=== PATIENT | female | born 1960 | race Caucasian/White ===

== ENCOUNTER 2022-05-21 12:56 | Outpatient (CLI) | payer OTHER, SELFPAY ==
--- NOTE | 2022-05-21 13:00 | CT_ITS ---
Final Report Patient: DONNA EAST Facility:?[facility] Patient ID:?[id number] Site Patient ID:?[id number]. Site :?[id number] Study:?CT ST Neck W/98CC [id number]/29/2022 2:51:54 PM Ordering Physician:Emerson Fairchild Final Report: DATE: 05/21/2022. CLINICAL HISTORY: Patient with difficulty swallowing. TECHNIQUE: Standard helical CT image acquisition of the neck up to the skull base after bolus intravenous contrast enhancement. Multiplanar reconstructed images performed on a separate workstation. Contrast: 98mL of Isovue-370 administered intravenously. COMPARISON: None available. FINDINGS: The nasopharynx, oropharynx, oral cavity, hypopharynx, and larynx are within normal limits. The airway is patent throughout. No CT evidence of pathologic cervical lymph nodes by size criteria. The major salivary glands are within normal limits. The spaces of the suprahyoid and infrahyoid neck are within normal limits. The thyroid gland is within normal limits. The visualized lung apices are unremarkable. IMPRESSION: No evidence of significant pathology involving the soft tissues of the neck. No findings to explain the source of the reported history of difficulty swallowing. Please note that all CT scans at this facility use dose modulation, iterative reconstruction, and/or weight-based dosing when appropriate to reduce radiation dose to as low as reasonably achievable. Dictated by Devante Johnson MD @ 05/21/2022 8:51:08 PM (Electronic Signature)
[2022-05-21 13:41] LABS: Creatinine* 0.6 mg/dL (0.5-1.5); Estimated Glomerular Filt Rate 101.42
== END 2022-05-21 12:57 | disposition home or self-care (01) ==
LOC: CT 12:59
PROVIDERS: PCP Family Medicine; Visit Provider Family Medicine
DX: R13.10 Dysphagia, unspecified (principal)
CPT/HCPCS: 36415; 70491; 82565; Q9967

== ENCOUNTER 2022-06-20 08:00 | Outpatient (CLI) | payer OTHER, SELFPAY ==
--- NOTE | 2022-06-20 08:15 | CRLHL7_ITS ---
For Patients: As a result of the Cures Act, medical imaging exams and procedure reports are released immediately into your electronic medical record. You may view this report before your referring provider. If you have questions, please contact your health care provider. Indication: Abnormal sensation in the left throat Technique: Esophagram Comparison: No comparison Findings: The patient was given thin and thick barium effervescent granules which were followed fluoroscopically. The hypopharynx is clear there is no mass lesion filling defects. No hiatal hernia seen. Impression: Unremarkable esophagram. Total fluoro time 0.5 seconds 10 images obtained. Dictated by Noemi Euceda MD @ 06/20/2022 9:17:31 AM (Electronically Signed)
== END 2022-06-20 08:01 | disposition home or self-care (01) ==
LOC: RAD 08:02
PROVIDERS: PCP Family Medicine; Visit Provider Otolaryngology
DX: R13.10 Dysphagia, unspecified (principal)
CPT/HCPCS: 74221

== ENCOUNTER 2023-02-09 13:38 | Outpatient (CLI) | payer OTHER, SELFPAY | END 2023-02-09 13:39 | disposition home or self-care (01) | LOC: NFLDREF 02-10 20:05 | PROVIDERS: PCP Family Medicine; Referring Provider Family Medicine; Visit Provider Family Medicine | DX: E55.9 Vitamin D deficiency, unspecified (principal); E78.5 Hyperlipidemia, unspecified; I10 Essential (primary) hypertension; E66.01 Morbid (severe) obesity due to excess calories | CPT/HCPCS: 80053; 80061; 82306 ==

== ENCOUNTER 2023-02-13 14:00 | Outpatient (CLI) | payer OTHER, SELFPAY | END 2023-02-13 14:01 | disposition home or self-care (01) | PROVIDERS: PCP Family Medicine; Referring Provider Family Medicine; Visit Provider Family Medicine | DX: R30.0 Dysuria (principal); E55.9 Vitamin D deficiency, unspecified; I10 Essential (primary) hypertension; K21.9 Gastro-esophageal reflux disease without esophagitis; Z23 Encounter for immunization; E78.5 Hyperlipidemia, unspecified; E66.01 Morbid (severe) obesity due to excess calories; K59.09 Other constipation; H40.9 Unspecified glaucoma; M25.551 Pain in right hip; M25.552 Pain in left hip; M54.50 Low back pain, unspecified | CPT/HCPCS: 87086 ==

== ENCOUNTER 2023-05-12 14:24 | Outpatient (CLI) | payer OTHER, SELFPAY ==
--- NOTE | 2023-05-12 14:40 | CRLHL7_ITS ---
For Patients: As a result of the Century Cures Act, medical imaging exams and procedure reports are released immediately into your electronic medical record. You may view this report before your referring provider. If you have questions, please contact your health care provider. BILATERAL SCREENING MAMMOGRAM WITH COMPUTER-AIDED DETECTION TECHNIQUE: CC and MLO views were obtained. These mammographic images have been obtained using full-field digital technique. These mammographic images were interpreted with the benefit of computer-aided detection. COMPARISON FILM: 10/26/19, 08/27/16, 01/26/15. FINDINGS: There are scattered areas of fibroglandular density IMPRESSION: There is no radiographic evidence for malignancy. ASSESSMENT: BI-RADS Category 1: Negative RECOMMENDATION: Routine screening mammogram in 1 year. A lay language report of this examination will be provided to the patient. Jesus So M.D. Diagnostic/Nuclear Medicine Radiologist [email or web address] LENY/Dictated by: Jesus So MD @ 05/13/2023 9:05:00 AM (Electronically Signed)
== END 2023-05-12 14:25 | disposition home or self-care (01) ==
LOC: MAMMO 14:25
PROVIDERS: PCP Family Medicine; Visit Provider Family Medicine
DX: Z12.31 Encounter for screening mammogram for malignant neoplasm of breast (principal)
CPT/HCPCS: 77067

== ENCOUNTER 2024-05-30 07:30 | Outpatient (CLI) | payer OTHER, SELFPAY ==
--- OUTSIDE RECORDS SUMMARY | 2024-05-30 13:12 | XMS_ITS | Clinical Summary ---
Author Organization [employer] [facility] Address [place], [place] [address] Care Team Providers Care Head Sampler Name Role Phone Clinic, [facility] Primary Care Prov ider Allergies No known active allergies Medications Medication Sig Dispensed Refills Start Date End Date Status hydrOXYzine HCl (ATARAX) 25 mg tablet Take 1 tablet by mouth at bedtime if needed. 0 09/14/2014 Active Active Problems Problem Noted Date Diagnosed Date Insomnia Immunizations Name Administration Dates Next Due Td (Age >=7 Years) 12/24/2004 Social History Tobacco Use Types Packs/Day Years Used Date Smoking Tobacco: Never Smokeless Tobacco: Never Alcohol Use Standard Drinks/Week Comments No 0 (1 standard drink = 0.6 oz pur e alcohol) Sex and Gender Information Value Date Recorded Sex Assigned at Not on file Gender Identity Not on file Sexual Orientation Not on file Obstetrics History Last Filed Vital Signs Vital Sign Reading Time Taken Comments Blood Pressure 118/82 01/01/2015 10:07 AM LINE UP WORKER Pulse 80 01/01/2015 10:05 AM LINE UP WORKER Temperature - - Respiratory Rate 14 09/14/2014 3:53 PM CDT Oxygen Saturation - - Inhaled Oxygen Concentration - - Weight 88.5 kg (195 lb) 01/01/2015 10:05 AM LINE UP WORKER Height 151.8 cm (4' 11.75) 01/01/2015 10:05 AM LINE UP WORKER Body Mass Index 38.4 01/01/2015 10:05 AM LINE UP WORKER Plan of Treatment Health Maintenance Due Date Last Done Comments Tdap 02/12/1971 Depression screening for age 12+ 1972 HIV for age 15-65 02/12/1975 BMI (ht and wt on same day) for age 18+ 02/12/1978 Hepatitis C screening for age 18-79 02/12/1978 Colonoscopy through age 75 02/12/2005 Lipids for age 45-75 02/12/2005 Mammogram for age 45-75 02/12/2005 Zoster (shingles) series for age 50+ (1 of 2) 02/12/2010 Tetanus booster 12/24/2014 12/24/2004 COVID-19 vaccine series (2022-24 season) 2023 Pap test for age 21-65 10/26/2023 , 10/26/2020, 01/26/2015, Additional history exists Influenza for age 50-64 07/24/2024 Pneumococcal series for age 6-64 Aged Out No longer eligible based on patient's age to complete this topic Procedures Procedure Name Priority Date/Time Associated Diagnosis Comments STOCK OR DELIVERY CLERK THIN PREP PAP SCREEN IMAGED Routine 10/26/2020 1:20 PM LINE UP WORKER from Last 3 Months or Most Recently Relevant to Health Maintenance Results * STOCK OR DELIVERY CLERK THIN PREP PAP SCREEN IMAGED (10/26/2020 1:20 PM LINE UP WORKER) Case Report Gynecologic Cytology Report ? Case: [id number] ? Authorizing Provider: ??Flora Lujan MD ??Collected: ? 10/26/2020 1320 ? Ordering Location: ? [facility] ?Received: ?10/30/2020 0848 ? First Screen: ?Cassy Cotton ? Specimen: ?STOCK OR DELIVERY CLERK ThinPrep Vial Screening, Cervical/Vaginal ? 11/12/2020 11:49 AM [facility] [employer] [facility] INTERPRETATION/ RESULT NEGATIVE FOR INTRAEPITHELIAL LESION OR MALIGNANCY (NIL) (none) 11/12/2020 11:49 AM [facility] [employer] [facility] IMEN ADEQUACY Satisfactory for evaluation No endocervical component seen 11/12/2020 11:49 AM [facility] HPV REQUEST HPV and PAP 11/12/2020 11:49 AM [facility] Date of LMP 11/12/2020 11:49 AM [facility] Comment:Unknown Last Pap Date 11/12/2020 11:49 AM [facility] Comment:Unknown Additional Information 11/12/2020 11:49 AM [facility] Comment: Interpreted at [facility], Central Laboratory - [address], [place] [address] Automated Review Successful 11/12/2020 11:49 AM [facility] Comment:Specimen processed s uccessfully by automated die forger device, ThinPrep Imaging System, [employer] ANCILLARY TESTING STOCK OR DELIVERY CLERK HPV Ordered, Please see separate report 11/12/2020 11:49 AM [facility] Note The pap test is a screening technique, not a diagnostic procedure. It is used primarily to screen for squamous cancers and precursor lesions. Published studies have shown that it is subject to both false negative and false positive results. The pap test should not be used as the sole means to diagnose or exclude pre-malignant and malignant lesions. 11/12/2020 11:49 AM [facility] [employer] [facility] Other (Cervical/Vagina l) 10/26/2020 1:20 PM LINE UP WORKER 10/30/2020 8:48 AM LINE UP WORKER Flora Lujan MD PATHOLOGY/CYTOLO GY [facility] [address] [place] [address], [place] from Last 3 Months or Most Recently Relevant to Health Maintenance Care Teams Head Sampler Relationship Specialty Start Date End Date Clinic, [facility] [address] [place] [address] PCP - General 03/13/07
== END 2024-05-30 07:31 | disposition home or self-care (01) ==
LOC: NFLDREF 12:57
PROVIDERS: PCP Family Medicine; Referring Provider Family Medicine; Visit Provider Family Medicine
DX: M81.0 Age-related osteoporosis without current pathological fracture (principal); E55.9 Vitamin D deficiency, unspecified; I10 Essential (primary) hypertension; E78.5 Hyperlipidemia, unspecified
CPT/HCPCS: 80053; 80061; 82306

== ENCOUNTER 2024-06-22 09:52 | Emergency (ER) | payer OTHER, SELFPAY ==
[2024-06-22 10:19] VITALS: BP 171/95; PULSE 81; RESP 18; TEMP 36.2; O2SAT 99; BMI 38.4
--- NOTE | 2024-06-22 10:42 | CRLHL7_ITS ---
For Patients: As a result of the Cures Act, medical imaging exams and procedure reports are released immediately into your electronic medical record. You may view this report before your referring provider. If you have questions, please contact your health care provider. Indication: LOW BACK PAIN Technique: Two views of the lumbar spine. Comparison: None. Findings: No acute displaced fracture or malalignment. Mild disc space narrowing at L1-2. Moderate facet arthropathy at L5-S1 with possible mild neural foraminal narrowing. Impression: No acute displaced fracture or malalignment. Mild degenerative changes as described above most prominently at L1-2 and L5-S1. Dictated by Ruddy Salas MD @ 06/22/2024 11:33:21 AM (Electronically Signed)
[2024-06-22] MEDS: CYCLOBENZAPRINE HCL 10 MG TABLET PO (10:50)
--- OUTSIDE RECORDS SUMMARY | 2024-06-22 10:53 | XMS_ITS | Clinical Summary ---
Author Organization [facility] Address [place], [place] [address] Care Team Providers Care Order Entry Clerk Name Role Phone Clinic, [facility] Primary Care Prov ider Allergies No [...] Comments Blood Pressure 118/82 01/01/2015 10:07 AM TRAVEL SERVICES PROFESSIONAL Pulse 80 01/01/2015 10:05 AM TRAVEL SERVICES PROFESSIONAL Temperature - - Respiratory Rate 14 09/14/2014 3:53 PM CDT Oxygen Saturation - - Inhaled Oxygen Concentration - - Weight 88.5 kg (195 lb) 01/01/2015 10:05 AM TRAVEL SERVICES PROFESSIONAL Height 151.8 cm (4' 11.75) 01/01/2015 10:05 AM TRAVEL SERVICES PROFESSIONAL Body Mass Index 38.4 01/01/2015 10:05 AM TRAVEL SERVICES PROFESSIONAL Plan of Treatment Health Maintenance Due Date [...] Procedure Name Priority Date/Time Associated Diagnosis Comments RISK MANAGEMENT SPECIALIST THIN PREP PAP SCREEN IMAGED Routine 10/26/2020 1:20 PM TRAVEL SERVICES PROFESSIONAL from Last 3 Months or Most Recently Relevant to Health Maintenance Results * RISK MANAGEMENT SPECIALIST THIN PREP PAP SCREEN IMAGED (10/26/2020 1:20 PM TRAVEL SERVICES PROFESSIONAL) Case Report Gynecologic Cytology Report ? Case: [id number] ? Authorizing Provider: ??Flora Lujan MD ??Collected: ? 10/26/2020 1320 ? Ordering Location: ? [facility] ?Received: ?10/30/2020 0848 ? First Screen: ?Cassy Cotton ? Specimen: ?RISK MANAGEMENT SPECIALIST ThinPrep Vial Screening, Cervical/Vaginal ? 11/12/2020 11:49 AM [facility] [employer] [facility] INTERPRETATION/ RESULT NEGATIVE FOR INTRAEPITHELIAL LESION OR MALIGNANCY (NIL) (none) 11/12/2020 11:49 AM [facility] [employer] [facility] IMEN ADEQUACY Satisfactory for evaluation No endocervical component seen 11/12/2020 11:49 AM [facility] HPV REQUEST HPV and PAP 11/12/2020 11:49 AM [facility] Date of LMP 11/12/2020 11:49 AM [facility] Comment:Unknown Last Pap Date 11/12/2020 11:49 AM [facility] Comment:Unknown Additional Information 11/12/2020 11:49 AM [facility] Comment: Interpreted at [facility] [employer] [facility], Central Laboratory - [address], [place] [address] Automated Review Successful 11/12/2020 11:49 AM [facility] Comment:Specimen processed s uccessfully by automated lamps tester and inspector device, ThinPrep Imaging System, [employer] ANCILLARY TESTING RISK MANAGEMENT SPECIALIST HPV Ordered, Please see separate report 11/12/2020 11:49 AM [facility] Note The pap test is a screening technique, not a diagnostic procedure. It is used primarily to screen for squamous cancers and precursor lesions. Published studies have shown that it is subject to both false negative and false positive results. The pap test should not be used as the sole means to diagnose or exclude pre-malignant and malignant lesions. 11/12/2020 11:49 AM [facility] [employer] [facility] Other (Cervical/Vagina l) 10/26/2020 1:20 PM TRAVEL SERVICES PROFESSIONAL 10/30/2020 8:48 AM TRAVEL SERVICES PROFESSIONAL Flora Lujan MD PATHOLOGY/CYTOLO GY [facility] LAB[facility]ORY [address] [place] [address], [place] from Last 3 Months or Most Recently Relevant to Health Maintenance Care Teams Order Entry Clerk Relationship Specialty Start Date End Date Clinic, [facility] [address] [place] [address] PCP - General 03/13/07
--- NOTE | 2024-06-22 11:47 | ED_ITS ---
HPI - Back Pain/Injury General Date Seen: 06/22/24 Chief Complaint: Back Injury/Pain Stated Complaint: Low back pain Time Seen by Provider: 06/22/24 09:54 Source: patient Mode of arrival: ambulatory Limitations: no limitations History of Present Illness HPI Narrative: Patient is a 64-year-old female presenting to the emergency department for low back pain. She states she has a history of low back issues and has done therapy in the past with minimal improvement in her symptoms. States she was at work when she was picking something up and twisted and she felt pain in her lower back. She states usually when this happened she is able walk it off but was unable to this time. She took some ibuprofen in states she feels like that is starting to kick in. Denies loss of bowel or bladder control. Denies urinary tension. No history of IV drug use. Denies saddle anesthesia. Pain does not radiate. No other concerns noted at this time. Related Data Home Medications ?Medication ?Instructions ?Recorded ?Confirmed cholecalciferol (vitamin D3) 10 10 mcg PO DAILY 06/05/22 06/22/24 mcg (400 unit) capsule polyethylene glycol 3350 17 17 g PO DAILY PRN 02/13/23 06/22/24 gram/dose oral powder latanoprost 0.005 % eye drops 1 drp ophthalmic (eye) DAILY 06/02/24 06/22/24 Previous Rx's ?Medication ?Instructions ?Recorded hydrochlorothiazide 12.5 mg capsule 12.5 mg PO DAILY #90 caps 06/02/24 cyclobenzaprine 10 mg tablet 10 mg PO TID PRN muscle spasm #15 06/22/24 tabs Allergies Allergy/AdvReac Type Severity Reaction Status Date / Time No Known Allergies Allergy Verified 06/22/24 10:26 Review of Systems Narrative: Pertinent systems reviewed and were negative unless stated HPI PFSH PFSH Medical History (Updated 06/22/24 @ 11:52 by Waqas Quinn DO) Swelling of lower extremity ?M79.89 - Other specified soft tissue disorders (ICD-10) Chronic constipation ?K59.09 - Other constipation (ICD-10) Uterine fibroid (06/21/10) ?D25.9 - Leiomyoma of uterus, unspecified (ICD-10) History of chronic constipation ?Z87.19 - Personal history of other diseases of the digestive system (ICD-10) Helicobacter pylori infection (~04/2021) ?A04.8 - Other specified bacterial intestinal infections (ICD-10) Headache associated with sexual activity (07/2019) ?G44.82 - Headache associated with sexual activity (ICD-10) Encounter for long-term (current) use of non-steroidal anti-inflammatories ?Z79.1 - MCC (current) use of non-steroidal anti-inflammatories (NSAID) (ICD-10) Dysphagia ?R13.10 - Dysphagia, unspecified (ICD-10) Situational depression (06/21/10) ?F43.21 - Adjustment disorder with depressed mood (ICD-10) Chronic right shoulder pain ?M25.511 - Pain in right shoulder (ICD-10) ?G89.29 - Other chronic pain (ICD-10) Surgical History (Updated 06/02/24 @ 11:53 by Flora Lujan MD) Hx of esophagogastroduodenoscopy (04/2022) ?Z98.890 - Other specified postprocedural states (ICD-10) History of tubal ligation (1980) ?Z98.51 - Tubal ligation status (ICD-10) Family History Pancreatic cancer Aunt Dementia Aunt Stroke Mother, Onset Age: 87 Social History (Updated 06/03/24 @ 09:08 by Jeronimo Colindres ~ [facility]) Narrative: does not drink alcohol exercises regularly- walks 2M/day x5 days a week , 3 adult kids, works in [employer] (physical work) non-smoker What is your current living situation?: I presently have a place to live Problems where you live: no known problems In the past 12 months, utilities in danger of being shut off: no In past 12 months, lack of transportation kept you from medical appts, meetings, work, or getting things needed for daily living: no In the past 12 mos, have been you worried that your food would run out before you had money to buy more?: never true In the past 12 mos, the food you bought just didn't last and you didn't have money to buy more?: never true Smoking Status: Never smoker Do you use any of these nicotine containing products: None How often do you have a drink containing alcohol: never How often do you have six or more drinks on one occasion: Never AUDIT-C Alcohol total score: 0 Non-prescribed substance use: denies use How often does anyone, including family, friends and others, physically hurt you : never How often does anyone, including family, friends and others, insult or talk down to you: rarely How often does anyone, including family, friends and others, threaten you with harm: never How often does anyone, including family, friends and others, scream or curse at you: never Little interest or pleasure in doing things: not at all Feeling down, depressed, or hopeless: not at all Exam Narrative: Exam Narrative: Const: Well-nourished, Well-developed, in mild distress Eyes: PERRL, no conjunctival injection, and symmetrical lids HENT: Atraumatic external nose and ears. Moist mucous membranes. MSK:Extremities w/o deformity, tenderness noted across the low back at about L4 Skin: Warm, Dry. No rashes or lesions. Neuro: Normal Muscle tone, No focal neurological deficits. Psych: Awake, Alert, & Oriented x3. Appropriate mood and affect. Const: Vital Signs, click to edit/add: Vital Signs - 24 hr 06/22/24 10:19 Temperature 97.1 F L Pulse Rate [Pulse Oximeter] 81 Respiratory Rate 18 Blood Pressure [Ri ght Upper Arm] 171/95 H Pulse Oximetry 99 Oxygen Delivery Me thod Room Air Course Vital Signs Vital signs: Initial Vital Signs Temperature 97.1 F L 06/22/24 10:19 Temperature Source Temporal Artery Scan 06/22/24 10:19 Pulse Rate 81 06/22/24 10:19 Respiratory Rate 18 06/22/24 10:19 Blood Pressure 171/95 H 06/22/24 10:19 Blood Pressure Mean 120 H 06/22/24 10:19 Blood Pressure Position Sitting 06/22/24 10:19 Pulse Oximetry 99 06/22/24 10:19 Oxygen Delivery Method Room Air 06/22/24 10:19 Vital Signs Temperature 97.1 F L 06/22/24 10:19 Pulse Rate 81 06/22/24 10:19 Respiratory Rate 18 06/22/24 10:19 Blood Pressure 171/95 H 06/22/24 10:19 Pulse Oximetry 99 06/22/24 10:19 Oxygen Delivery Method Room Air 06/22/24 10:19 Temperature 97.1 F L 06/22/24 10:19 Pulse Rate 81 06/22/24 10:19 Respiratory Rate 18 06/22/24 10:19 Blood Pressure 171/95 H 06/22/24 10:19 Pulse Oximetry 99 06/22/24 10:19 Oxygen Delivery Method Room Air 06/22/24 10:19 Medications Administered Medications: Discontinued Medications Generic Name Dose Route Start Last Admin Trade Name Freq PRN Reason Stop Dose Admin Cyclobenzaprine HCl 10 mg 06/22/24 10:42 06/22/24 10:50 Cyclobenzaprine Hcl 10 Mg Tablet PO 06/22/24 10:43 10 mg ONCE ONE Administration MDM - Back Pain/Injury MDM Narrative Medical decision making narrative: Patient is 64-year-old female presenting to emergency department for low back pa in. This occurred at work. Will do an x-ray to make sure there are no acute fractures considering this was a work injury. Will give her a muscle relaxer for pain. X-ray returned showing no concerning abnormalities and she states she is feeling better at this time. No signs of red flag symptoms for cauda equina. She is otherwise doing well this is most likely a muscle strain considering the pain goes all the way across the back. Will be discharged. She is agreeable to this plan peer Imaging Data X-ray lumbar spine: Attestation: I have reviewed the pertinent imaging results. Radiologist's impression: No acute displaced fracture or malalignment. Mild degenerative changes as described above most prominently at L1-2 and L5-S1. Dictated by Ruddy Salas MD @ 06/22/2024 11:33:21 AM Discharge Plan Discharge Clinical Impression: Strain of lumbar region Qualifiers: Encounter type: initial encounter Qualified Code(s): S39.012A - Strain of muscle, fascia and tendon of lower back, initial encounter Patient Disposition: Home, Self-Care Condition: Improved Instructions: Low Back Strain (ED) Additional Instructions: Take ibuprofen for pain if that is not helping he can use the muscle relaxer provided. Follow-up with primary care provider if symptoms are persisting. Prescriptions: New cyclobenzaprine 10 mg tablet 10 mg PO TID PRN (Reason: muscle spasm) Qty: 15 0RF No Action cholecalciferol (vitamin D3) 10 mcg (400 unit) capsule 10 mcg PO DAILY polyethylene glycol 3350 17 gram/dose powder 17 g PO DAILY PRN Rx Instructions: Take with a full glass of water. latanoprost 0.005 % drops 1 drp ophthalmic (eye) DAILY hydrochlorothiazide 12.5 mg capsule 12.5 mg PO DAILY Qty: 90 3RF Follow Up/Referrals: Flora Lujan MD [Primary Care Provider] - Stand Alone Forms: [employer] Info Instructions
== END 2024-06-22 11:58 | disposition home or self-care (01) ==
PROVIDERS: Emergency Provider Student in an Organized Health Care Education/Training Program; PCP Family Medicine
DX: S39.012A Strain of muscle, fascia and tendon of lower back, initial encounter (principal)
CPT/HCPCS: 72100; 99282; 99283; A9270

== ENCOUNTER 2024-08-04 14:36 | Outpatient (CLI) | payer OTHER, SELFPAY ==
--- OUTSIDE RECORDS SUMMARY | 2024-08-04 14:39 | XMS_ITS | Clinical Summary ---
Author Organization [employer] [facility] Address [place], [place] [address] Care Team Providers Care Shirt Ironer Supervisor Name Role Phone Clinic, [facility] Primary Care Prov ider Allergies No [...] Comments Blood Pressure 118/82 01/01/2015 10:07 AM FISH BIN TENDER Pulse 80 01/01/2015 10:05 AM FISH BIN TENDER Temperature - - Respiratory Rate 14 09/14/2014 3:53 PM CDT Oxygen Saturation - - Inhaled Oxygen Concentration - - Weight 88.5 kg (195 lb) 01/01/2015 10:05 AM FISH BIN TENDER Height 151.8 cm (4' 11.75) 01/01/2015 10:05 AM FISH BIN TENDER Body Mass Index 38.4 01/01/2015 10:05 AM FISH BIN TENDER Plan of Treatment Health Maintenance Due Date [...] of 2) 02/12/2010 Tetanus booster 12/24/2014 12/24/2004 Pap test for age 21-65 10/26/2023 0, 10/26/2020, 01/26/2015, Additional history exists COVID-19 vaccine series ( season) 2024 Influenza for age 50-64 07/24/2024 Pneumococcal series for age 6-64 Aged Out No longer eligible based on patient's age to complete this topic Procedures Procedure Name Priority Date/Time Associated Diagnosis Comments SQL DATABASE ADMINISTRATOR THIN PREP PAP SCREEN IMAGED Routine 10/26/2020 1:20 PM FISH BIN TENDER from Last 3 Months or Most Recently Relevant to Health Maintenance Results * SQL DATABASE ADMINISTRATOR THIN PREP PAP SCREEN IMAGED (10/26/2020 1:20 PM FISH BIN TENDER) Case Report Gynecologic Cytology Report ? Case: [id number] ? Authorizing Provider: ??Flora Lujan MD ??Collected: ? 10/26/2020 1320 ? Ordering Location: ? [facility] ?Received: ?10/30/2020 0848 ? First Screen: ?Cassy Cotton ? Specimen: ?SQL DATABASE ADMINISTRATOR ThinPrep Vial Screening, Cervical/Vaginal ? 11/12/2020 11:49 AM [facility] [employer] [facility] INTERPRETATION/ RESULT NEGATIVE FOR INTRAEPITHELIAL LESION OR MALIGNANCY (NIL) (none) 11/12/2020 11:49 AM [facility] [employer] [facility] IMEN ADEQUACY Satisfactory for evaluation No endocervical component seen 11/12/2020 11:49 AM [facility] HPV REQUEST HPV and PAP 11/12/2020 11:49 AM [facility] Date of LMP 11/12/2020 11:49 AM [facility] Comment:Unknown Last Pap Date 11/12/2020 11:49 AM [facility] Comment:Unknown Additional Information 11/12/2020 11:49 AM [facility] Comment: Interpreted at [facility] [employer] [facility] Laboratory - [address], [place] [address] Automated Review Successful 11/12/2020 11:49 AM [facility] Comment:Specimen processed s uccessfully by automated cashier self service gasoline device, ThinPrep Imaging System, [employer] ANCILLARY TESTING SQL DATABASE ADMINISTRATOR HPV Ordered, Please see separate report 11/12/2020 11:49 AM [facility] Note The pap test is a screening technique, not a diagnostic procedure. It is used primarily to screen for squamous cancers and precursor lesions. Published studies have shown that it is subject to both false negative and false positive results. The pap test should not be used as the sole means to diagnose or exclude pre-malignant and malignant lesions. 11/12/2020 11:49 AM [facility] [employer] [facility] Other (Cervical/Vagina l) 10/26/2020 1:20 PM FISH BIN TENDER 10/30/2020 8:48 AM FISH BIN TENDER Flora Lujan MD PATHOLOGY/CYTOLO GY [facility] [address] [place] [address], [place] from Last 3 Months or Most Recently Relevant to Health Maintenance Care Teams Shirt Ironer Supervisor Relationship Specialty Start Date End Date Clinic, [facility] [address] [place] [address] PCP - General 03/13/07
--- NOTE | 2024-08-04 15:00 | CRLHL7_ITS ---
For Patients: As a result of the Century Cures Act, medical imaging exams and procedure reports are released immediately into your electronic medical record. You may view this report before your referring provider. If you have questions, please contact your health care provider. BILATERAL SCREENING MAMMOGRAM WITH COMPUTER-AIDED DETECTION AND TOMOSYNTHESIS TECHNIQUE: CC and MLO views were obtained. These mammographic images have been obtained using full-field digital technique. These mammographic images were interpreted with the benefit of computer-aided detection. Breast Tomosynthesis was used in this interpretation. COMPARISON FILM: 05/12/23, 10/26/19, 07/28/18. FINDINGS: There are scattered areas of fibroglandular density IMPRESSION: There is no radiographic evidence for malignancy. ASSESSMENT: BI-RADS Category 1: Negative RECOMMENDATION: Routine screening mammogram in 1 year. A lay language report of this examination will be provided to the patient. Jeronimo Fernandez M.D. Diagnostic Radiologist [employer] [facility] [email or web address] LENY/Dictated by: Jeronimo Fernandez MD @ 08/05/2024 9:24:00 AM (Electronically Signed)
== END 2024-08-04 14:37 | disposition home or self-care (01) ==
LOC: MAMMO 14:37
PROVIDERS: PCP Family Medicine; Visit Provider Family Medicine
DX: Z12.31 Encounter for screening mammogram for malignant neoplasm of breast (principal)
CPT/HCPCS: 77063; 77067